=== PATIENT | male | born 1980 | race Caucasian/White ===

== ENCOUNTER 2019-12-06 17:36 | Emergency (ER) | payer BC, SELFPAY ==
--- NOTE | ~2019-12-06 | XR_ITS ---
XR hand LT 2V 12/06/2019 19:39 INDICATION: Left hand pain PROCEDURE: 2 views left hand COMPARISON: No prior studies for comparison. FINDINGS: Fracture, dislocation or subluxation is not identified. There are 3 screws in the fourth me tacarpal. The soft tissues appear within normal limits. No foreign bodies are identified. IMPRESSION: 1: NO ACUTE BONE OR JOINT ABNORMALITY IDENTIFIED. Reviewed, dictated and finalized at location A.
[2019-12-06 17:59] VITALS: BP 142/81; PULSE 86; RESP 14; TEMP 36.7; O2SAT 100
[2019-12-06 19:49] LABS: Basophils Absolute Auto 0.1 K/mm3 (0.0-0.1); Basophils Percent Auto 1.2 % (0.2-1.2); Eosinophils Absolute Auto 0.4 K/mm3 (0-0.3); Eosinophils Percent Auto 4.8 % (0-4.4); Hematocrit 40.7 % (42.0-52.0); Hemoglobin 13.8 g/dL (14.0-18.0); Immature Granulocyte Absolute 0.05 K/mm3 (0.00-0.031); Immature Granulocyte Percent A 0.6 % (0-0.5); Lymphocytes Absolute Auto 3.25 K/mm3 (0.9-3.2); Lymphocytes Percent Auto 39.1 % (18.3-44.2); Mean Corpuscular HGB Conc 33.9 g/dl (32-36); Mean Corpuscular Hemoglobin 29.9 pg (26-34); Mean Corpuscular Volume 88.3 fl (80-100); Monocytes Absolute Auto 0.6 K/mm3 (0.1-0.6); Neutrophils Absolute Auto 3.9 K/mm3 (1.3-6.7); Neutrophils Percent Auto 47.3 % (45.5-73.1); Platelet Count Result 301 k/mm3 (150-375); Red Blood Count 4.61 M/mm3 (4.6-6.20); Red Cell Distribution Width 12.7 % (11.5-14.5); White Blood Count 8.3 K/mm3 (4.5-10.0)
[2019-12-06 20:05] LABS: Anion Gap 5 mmol/L (8-16); Blood Urea Nitrogen 17 mg/dL (9-20); CRP < 0.5 mg/dL (<1.0); Calcium 8.8 mg/dL (8.4-10.2); Carbon Dioxide 30 mmol/L (22-30); Chloride 103 mmol/L (98-107); Estimated CRCL calculation 100 ml/min; Estimated Glomerular Filt Rate > 60; Glucose 91 mg/dL (75-110); Sodium 138 mmol/L (137-145); Uric Acid 5.4 mg/dL (3.5-8.5)
--- NOTE | 2019-12-06 21:00 | ED.GENADULT ---
HPI - General Adult General Chief complaint: Extremity Injury, Upper Stated complaint: L wrist pain Time Seen by Provider: 12/06/19 18:34 Source: patient Limitations: no limitations History of Present Illness HPI narrative: 39-year-old with no major medical problems here with complaints of sudden onset of pain at the base of the left thumb. He denies any injuries. He states that he had a similar pain 2 years ago. He denies any history of gouty arthritis. Onset (ago): day(s) (1) Location: upper extremity Radiation: extremity (Pain shooting from the thumb all the way to his shoulder) Severity: moderate Severity scale (1-10): 6 Quality: aching Pain Consistency: constant Relieving factors: none Exacerbating factors: movement Related Data Home Medications Medication Instructions Recorded Confirmed No Home Medications 12/06/19 12/06/19 Allergies Allergy/AdvReac Type Severity Reaction Status Date / Time No Known Allergies Allergy Verified 12/06/19 18:04 Review of Systems Review of Systems: All systems reviewed & are unremarkable except as noted in HPI and below Constitutional: Constitutional: Reports as per HPI Eyes: Eyes: Reports as per HPI Cardiovascular: Cardiovascular: Reports as per HPI Respiratory: Respiratory: Reports no additional respiratory complaints Gastrointestinal: Gastrointestinal: Reports no additional gastrointestinal complaints Musculoskeletal: Musculoskeletal: Reports as per HPI Neurologic: Reports system reviewed and no additional complaints, except as documented PMFSH Social History Social History Gender identity (if verbalized by the patient): Male Exam Narrative: Exam Narrative: GENERAL: Well-appearing, well-nourished, and in no acute distress. HEAD: Normocephalic, atraumatic. EYES: PERRLA and EOMI. ENT: Nares clear, no rhinorrhea or epistaxis. Mucous membranes moist. NECK: Supple. CHEST: Clear to auscultation. No respiratory distress. HEART: Regular rate and rhythm. No murmur heard. Normal peripheral pulses.. EXTREMITIES: Normal range of motion. No edema. pain and tenderness a the base of the left thumb , no erythema or swelling SKIN: Warm, dry, no rash. NEURO: No focal deficits. Alert and oriented x3. PSYCH: Normal mood and affect. Course Vital Signs Vital signs: Vital Signs Temperature 36.7 C 12/06/19 17:59 Pulse Rate 86 12/06/19 17:59 Respiratory Rate 14 12/06/19 17:59 Blood Pressure 142/81 H 12/06/19 17:59 Pulse Oximetry 100 12/06/19 17:59 Temperature 36.7 C 12/06/19 17:59 Pulse Rate 86 12/06/19 17:59 Respiratory Rate 14 12/06/19 17:59 Blood Pressure 142/81 H 12/06/19 17:59 Pulse Oximetry 100 12/06/19 17:59 Medical Decision Making MDM Narrative Medical decision making narrative: Given history of sudden onset of pain at the left no history of trauma will do CBC chemistry and uric acid level and also an x-ray. I have informed patient about his lab work, x-ray findings this time it could be arthritic pain versus tendinitis. Advised him to continue to use his splint we will start him on prednisone taper . Differential Diagnosis Differential Diagnosis: Gouty arthritis, sprain, tendinitis Vital Signs Vital Signs: Vital Signs Temperature 36.7 C 12/06/19 17:59 Pulse Rate 86 12/06/19 17:59 Respiratory Rate 14 12/06/19 17:59 Blood Pressure 142/81 H 12/06/19 17:59 Pulse Oximetry 100 12/06/19 17:59 Temperature 36.7 C 12/06/19 17:59 Pulse Rate 86 12/06/19 17:59 Respiratory Rate 14 12/06/19 17:59 Blood Pressure 142/81 H 12/06/19 17:59 Pulse Oximetry 100 12/06/19 17:59 Lab Data Result diagrams: 12/06/19 19:42 12/06/19 19:42 Labs: Lab Results 12/06/19 12/06/19 Range/Units 19:42 19:42 WBC 8.3 (4.5-10.0) K/mm3 RBC 4.61 (4.6-6.20) M/mm3 Hgb 13.8 L (14.0-18.0) g/dL Hct 40.7 L (42.0-52.0) %
[2019-12-06 21:14] VITALS: BP 138/80; PULSE 80; RESP 20; O2SAT 100
== END 2019-12-06 21:16 | disposition home or self-care (01) ==
PROVIDERS: Emergency Provider Family Medicine; PCP Family Medicine
DX: M25.542 Pain in joints of left hand (principal)
CPT/HCPCS: 36415; 73120; 80048; 84550; 85025; 86140; 99283

== ENCOUNTER 2020-04-29 12:58 | Emergency (ER) | payer BC, SELFPAY ==
[2020-04-29 13:11] VITALS: BP 125/79; PULSE 94; RESP 18; TEMP 36.8; O2SAT 99
--- NOTE | 2020-04-29 13:15 | ECG_ITS ---
Measurements Intervals [place] Rate: 82 P: 58 W[place]: 144 QRS: 23 QRSD: 94 T: -9 QT: 355 QTc: 416 Interpretive Statements SINUS RHYTHM WITH SINUS ARRHYTHMIA NONSPECIFIC T-WAVE ABNORMALITY- INFERIOR LEADS BORDERLINE ECG Electronically Signed On 04-29-2020 13:39:19 [employer]EL[employer] WEL[employer] by Axel Veras D.O.
[2020-04-29 13:27] LABS: Basophils Absolute Auto 0.1 K/mm3 (0.0-0.1); Basophils Percent Auto 0.9 % (0.2-1.2); Eosinophils Absolute Auto 0.4 K/mm3 (0-0.3); Eosinophils Percent Auto 3.8 % (0-4.4); Hemoglobin 14.9 g/dL (14.0-18.0); Immature Granulocyte Absolute 0.04 K/mm3 (0.00-0.031); Immature Granulocyte Percent A 0.4 % (0-0.5); Lymphocytes Absolute Auto 2.62 K/mm3 (0.9-3.2); Lymphocytes Percent Auto 25.3 % (18.3-44.2); Mean Corpuscular HGB Conc 33.9 g/dl (32-36); Mean Corpuscular Volume 88.5 fl (80-100); Mean Platelet Volume 8.7 fl (7.4-10.4); Monocytes Absolute Auto 0.7 K/mm3 (0.1-0.6); Neutrophils Absolute Auto 6.5 K/mm3 (1.3-6.7); Neutrophils Percent Auto 62.6 % (45.5-73.1); Platelet Count Result 305 k/mm3 (150-375); Red Blood Count 4.97 M/mm3 (4.6-6.20); Red Cell Distribution Width 12.7 % (11.5-14.5); White Blood Count 10.3 K/mm3 (4.5-10.0)
[2020-04-29 13:38] LABS: Anion Gap 9 mmol/L (8-16); Blood Urea Nitrogen 12 mg/dL (9-20); Calcium 9.2 mg/dL (8.4-10.2); Carbon Dioxide 25 mmol/L (22-30); Chloride 104 mmol/L (98-107); Estimated CRCL calculation 109 ml/min; Estimated Glomerular Filt Rate > 60; Glucose 85 mg/dL (75-110); Potassium 3.9 mmol/L (3.4-5.0); Sodium 138 mmol/L (137-145)
[2020-04-29 15:04] VITALS: BP 151/88; PULSE 64
[2020-04-29 15:05] VITALS: BP 152/91; PULSE 68
[2020-04-29 15:07] VITALS: BP 164/88; PULSE 71
--- NOTE | 2020-04-29 17:13 | ED.GENADULT ---
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 He did not have any chest pain focal weakness or shortness of breath Onset (ago): hour(s) Related Data Allergies Allergy/AdvReac Type Severity Reaction Status Date / Time No Known Allergies Allergy Verified 12/06/19 18:04 Review of Systems Review of Systems: All systems reviewed & are unremarkable except as noted in HPI and below Constitutional: Constitutional: Reports chills, Reports fatigue, Denies fever(s), Denies headache(s) and Reports weakness Eyes: Eyes: Reports no additional eye complaints and Denies change in vision ENT: Denies headache(s), Denies epistaxis, Denies nasal congestion and Denies sore throat Cardiovascular: Cardiovascular: Denies chest pain, Denies leg edema, Reports palpitations and Denies dyspnea Respiratory: Respiratory: Denies cough, Denies dyspnea and Denies wheezing Gastrointestinal: Gastrointestinal: Denies abdominal pain, Denies diarrhea, Denies nausea and Denies vomiting Genitourinary: Genitourinary: Denies hematuria, Denies dysuria and Denies urinary frequency Musculoskeletal: Musculoskeletal: Denies deformity, Denies arthralgias, Denies joint swelling, Denies muscle weakness and Denies numbness Integumentary/Breasts: Skin/Breast: Denies rash and Denies wounds Neurologic: Reports dizziness, Denies headache(s), Denies focal weakness, Denies numbness and Denies weakness Psychiatric: Psychiatric: Reports no additional psychiatric complaints Endocrine: Endocrine: Denies fatigue and Denies palpitations Hematologic/Lymphatic: Hematologic/Lymphatic: Denies easy bleeding and Denies easy bruising Allergic/Immunologic: Allergic/Immunologic: Denies wheezing PMFSH Social History Social History Gender identity (if verbalized by the patient): Male Exam Const: General: no acute distress, well developed and awake Nutritional Appearance: well nourished Orientation/consciousness: patient oriented x3 (alert) Limitations: no limitations HENMT: Head: normocephalic and atraumatic Ears: external ears normal General nose exam: No nasal discharge present and no epistaxis Face and sinus: face symmetric Eyes: Conjunctivae: conjunctivae normal Sclera: sclerae normal EOM: EOMs intact bilaterally Neck: Neck: normal visual inspection, supple and no JVD Chest: Chest palpation & inspection: deferred Resp: Effort & Inspection: normal respiratory effort Auscultation: clear to auscultation bilaterally, no rales, no rhonchi, no wheezes and other (BS =) Cardio: Rate: regular rate Rhythm: regular rhythm Heart sounds: no gallops and no murmurs GI: Inspection: normal to inspection GI Palp: Yes Soft to palpation and No Tenderness to palpation present (GI) : General: Yes no CVA tenderness Back/Spine/Pelvis: Back: no CVA tenderness Thoracic/Lumbar Spine: thoracic and lumbar spine normal to inspection Skin: General skin exam: normal color and no rashes or lesions noted Neuro: General: patient oriented x3 (alert), moves all extremities and no focal motor deficits Cranial nerves: Yes facial symmetry Speech: normal speech Extrem: General: normal to inspection, full ROM and no pedal edema Psych: Affect: normal affect Course Course Emergency Course: unremarkable w/u, 2nd trop neg, holter placed Vital Signs Vital signs: Vital Signs [place]
[2020-04-29 17:25] VITALS: BP 142/74; PULSE 63; RESP 18; O2SAT 100
[2020-04-29 18:19] LABS: Troponin I < 0.012 ng/mL (0.000-0.034)
[2020-04-29 18:45] VITALS: BP 150/97; PULSE 72; RESP 16; O2SAT 100
[2020-04-29 19:05] LABS: Thyroid Stimulating Hormone Reflex 0.763 uIU/mL (0.465-4.68)
--- NOTE | 2020-05-04 16:35 | WPDHOLTEREM ---
Holter/Event Monitor Holter/Event Monitor Date of procedure: 04/29/20 Procedure Type: 48 hour holter monitor Indications: Lightheadedness, palpitations Conclusion: 1. 48 hour holter monitor on 04/29/20. 2. Underlying rhythm is sinus rhythm. HR range 47-152 bpm; average HR 76 bpm. 3. There are 45 premature supraventricular complexes. No supraventricular tachycardia. 4. There are 29 premature venricular complexes and 2 ventricular couplets. No ventricular tachycardia. 5. No sinoatrial or atrioventricular blocks. No significant pauses greater than 2 seconds. 6. Patient reports symptoms of dizziness, heart jumping, chest pain, shortness of breath which demonstrate sinus rhythm, HR range 60-103 bpm.
== END 2020-04-29 18:47 | disposition home or self-care (01) ==
PROVIDERS: Emergency Provider Emergency Medicine; Family Provider Emergency Medicine; PCP Family Medicine
DX: R00.2 Palpitations (principal); R94.31 Abnormal electrocardiogram [ECG] [EKG]
CPT/HCPCS: 36415; 80048; 84443; 84484; 85025; 93005; 93225; 93226; 99284

== ENCOUNTER 2023-02-23 23:38 | Emergency (ER) | payer BC, SELFPAY ==
--- NOTE | ~2023-02-23 | XR_ITS ---
EXAMINATION: XR chest 2V DATE: 02/23/2023 23:56 INDICATION: Shortness of breath and central chest pain TECHNIQUE: PA and lateral views of the chest were obtained. COMPARISON: None FINDINGS: The lungs are clear with no focal airspace opacities, pulmonary edema, pleural effusion or pneumothor ax. The cardiomediastinal silhouette is normal. Mild thoracic spondylosis. IMPRESSION: 1. No acute cardiopulmonary disease. Reviewed, dictated and finalized at location A. [employer]
--- NOTE | 2023-02-23 23:40 | ECG_ITS ---
Measurements Intervals [place] Rate: 89 P: 66 DC: 145 QRS: 48 QRSD: 101 T: 38 QT: 355 QTc: 433 Interpretive Statements SINUS RHYTHM INCOMPLETE RIGHT BUNDLE BRANCH BLOCK BORDERLINE ECG COMPARED TO ECG 04/29/2020 13:24:04 NO SIGNIFICANT CHANGES Electronically Signed On 02-24-2023 7:40:09 BATH STEWARD/STEWARDESS by Axel Veras D.O.
[2023-02-23 23:41] VITALS: BP 160/94; PULSE 98; RESP 15; TEMP 36.4; O2SAT 100
[2023-02-23 23:58] LABS: Basophils Absolute Auto 0.1 K/mm3 (0.0-0.1); Basophils Percent Auto 0.9 % (0.2-1.2); Eosinophils Absolute Auto 0.1 K/mm3 (0-0.3); Eosinophils Percent Auto 0.7 % (0-4.4); Hematocrit 43.9 % (42.0-52.0); Hemoglobin 14.4 g/dL (14.0-18.0); Immature Granulocyte Absolute 0.09 K/mm3 (0.00-0.031); Immature Granulocyte Percent A 0.8 % (0-0.5); Lymphocytes Absolute Auto 1.61 K/mm3 (0.9-3.2); Lymphocytes Percent Auto 13.6 % (18.3-44.2); Mean Corpuscular HGB Conc 32.8 g/dl (32-36); Mean Corpuscular Hemoglobin 29.3 pg (26-34); Mean Corpuscular Volume 89.2 fl (80-100); Mean Platelet Volume 8.7 fl (7.4-10.4); Monocytes Absolute Auto 0.7 K/mm3 (0.1-0.6); Monocytes Percent Auto 5.9 % (2.6-8.5); Neutrophils Absolute Auto 9.3 K/mm3 (1.3-6.7); Neutrophils Percent Auto 78.1 % (45.5-73.1); Platelet Count Result 291 k/mm3 (150-375); Red Blood Count 4.92 M/mm3 (4.6-6.20); Red Cell Distribution Width 13.1 % (11.5-14.5); White Blood Count 11.9 K/mm3 (4.5-10.0)
[2023-02-24] VITALS (39 sets, daily range): BP systolic 115–177; BP diastolic 60–96; PULSE 58–123; RESP 12–21; O2SAT 97–100
[2023-02-24 00:08] LABS: Alanine Aminotransferase 48 U/L (6-50); Albumin Level 4.8 g/dL (3.5-5.1); Alkaline Phosphatase 57 U/L (38-126); Anion Gap 8 mmol/L (8-16); Aspartate Amino Transferase 96 U/L (17-59); Bilirubin,Total 0.5 mg/dL (0.2-1.3); Blood Urea Nitrogen 18 mg/dL (9-20); Calcium 8.9 mg/dL (8.4-10.2); Carbon Dioxide 27 mmol/L (22-30); Chloride 102 mmol/L (98-107); Estimated CRCL calculation 96 ml/min; Estimated Glomerular Filt Rate > 60; Glucose 120 mg/dL (65-110); Lipase 73 U/L (23-300); Sodium 137 mmol/L (137-145)
[2023-02-24 00:20] LABS: Troponin I < 0.012 ng/mL (0.000-0.034)
[2023-02-24] MEDS: ASPIRIN 81 MG CHEWABLE TABLET 324 MG PO (03:23)
[2023-02-24 04:13] LABS: Troponin I < 0.012 ng/mL (0.000-0.034)
--- NOTE | 2023-02-24 04:25 | PC.NURSE ---
0416 - Pt had multiple runs of vtach at this time. starting w pairs and triplets then going into a 15 beat run follow by NSR and then another 11 beat run. Pt states he felt out of wack . Pt currently in NSR at [address] Menjivar made aware.
--- NOTE | 2023-02-24 04:31 | ED.CHESTPAIN ---
HPI - Chest Pain General Chief Complaint: Chest Pain Stated Complaint: chest pain/hypertension Time Seen by Provider: 02/24/23 02:46 Source: patient Limitations: no limitations History of Present Illness HPI narrative: Patient is a 43-year-old male presents to the emergency department complaining of chest pain. Patient states around approximately 8:30 p.m. while he was up and walking around he gradually developed some chest pain in the center of his chest, felt like his chest was caving in, he sat down and rested and did not go away any checked his blood pressure which was high in the 170 systolic and came into the emergency for further evaluation. Patient states he has got a history of heart rate and was recently started on metoprolol on Sunday through the [facility] where he is known to cardiology. Patient denies any history of heart attacks or stents in his heart. Patient does admit to family history of his mother having a heart attack in her 50s and passing away. Patient is a smoker. Patient was he is on the metoprolol for a resting heart rate and for high blood pressure present recording his blood pressures at home and at high. Patient denies history of cholesterol or diabetes. He patient admitted to some mild shortness of breath associated with chest pain. Patient states since being in the emergency department chest pain has been improving and is minimally present at this time. Patient denies radiation of the pain or history of this pain in the past. Patient does not notice anything making the pain better or worse. Patient denies any recent fevers or recent illness, cough, fever, abdominal pain, nausea, vomiting diaphoresis, urinary discomfort, numbness, weakness, sore throat, nasal congestion. Patient does state that when he was having the chest pain it also felt like his heart was racing at the same time. Related Data Allergies Allergy/AdvReac Type Severity Reaction Status Date / Time No Known Allergies Allergy Verified 02/23/23 23:44 Review of Systems Review of Systems: A 10 system review of systems was completed on the patient and is negative except for what is stated in the HPI. Nursing and ancillary documentation was reviewed. [facility] Social History Social History Gender identity (if verbalized by the patient): Male Comments At time of signature, I have reviewed and agree with nursing past medical, surgical, social and family history unless otherwise noted. Please see the nursing chart for further information. There is no relevant family history pertinent to the presenting complaint. Exam Narrative: CONST: No acute distress. Well nourished. HENMT: Head is normocephalic and atraumatic. Moist mucous membranes. No posterior oropharynx erythema. EYES: No conjunctival icterus, injection, or pallor. PERRL. NECK: No meningeal signs. RESP: Able to speak in full sentences. Normal respiratory effort. CTAB. CARDIO: Regular rate. Regular rhythm. 2+ DP and radial pulses bilaterally. GI: Nondistended. No tenderness to palpation. Soft. : No CVA tenderness to palpation. SKIN: No rashes or lesions noted on exposed skin. NEURO: Oriented x3. Moves all extremities. EXTREM/MSK/BACK: No pedal edema. PSYCH: Normal affect. Course Vital Signs Vital signs: Vital Signs Temperature 97.6 F 02/23/23 23:41 Pulse Rate 98 02/23/23 23:41 Respiratory Rate 15 02/23/23 23:41 Blood Pressure 160/94 H 02/23/23 23:41 Pulse Oximetry 100 02/23/23 23:41 Oxygen Delivery Room Air 02/23/23 23:41 Temperature 97.6 F 02/23/23 23:41 Pulse Rate 69 02/24/23 06:38 Respiratory Rate 16 02/24/23 06:38 Blood Pressure 150/85 H 02/24/23 06:38 Pulse Oximetry 99 02/24/23 06:38 Oxygen Delivery Room Air 02/24/23 02:10 MDM - Chest Pain MDM Narrative Medical decision making narrative: Patient presents with the above complaint. Initial vitals are
[2023-02-24 05:35] LABS: Influenza A QL RT-PCR Negative (Negative); Influenza B QL RT-PCR Negative (Negative); SARS-CoV-2 RNA PCR Negative (Negative)
--- NOTE | 2023-02-24 05:52 | PC.NURSE ---
Pt [facility] at [facility].
--- NOTE | 2023-02-24 07:14 | PC.NURSE ---
Report given to RADHA Bangura at this time.
[2023-02-24 07:21] LABS: Troponin I < 0.012 ng/mL (0.000-0.034)
[2023-02-24] MEDS: METOPROLOL TARTRATE 12.5 MG TABLET PO (10:32)
--- NOTE | 2023-02-24 10:32 | PC.NURSE ---
This RN gave pt an update that [facility], we are just waiting for them to have a bed. Pt stated, I'll give you 4 hours to get a bed and then I am leaving. I am just laying here when I could be doing this at home.
--- NOTE | 2023-02-24 11:45 | PC.NURSE ---
accepted by [place] Dr Schmitt 6th floor [place] [phone] ext [phone] for report
== END 2023-02-24 14:45 ==
PROVIDERS: Emergency Provider Student in an Organized Health Care Education/Training Program
DX: R07.9 Chest pain, unspecified (principal); I10 Essential (primary) hypertension; I47.20 Ventricular tachycardia, unspecified; Z20.822 Contact with and (suspected) exposure to COVID-19
CPT/HCPCS: 36415; 71046; 80053; 83690; 84484; 85025; 85610; 85730; 87636; 93005; 99285; A9270